=== PATIENT | female | born 1955 | race Caucasian/White ===

== ENCOUNTER 2018-09-30 10:41 | Day surgery (SDC) | payer OTHER ==
[2018-09-17 14:07] VITALS: BMI 22.5
[2018-09-30] MEDS ORDERED: LIDOCAINE HCL/PF 2% SDV 5ML VIAL ONE (11:02)
[2018-09-30] MEDS ORDERED: PROPOFOL 20 ML ONE (11:02)
[2018-09-30 16:50] VITALS: TEMP 97.6
[2018-09-30 18:03] VITALS: PULSE 72
[2018-09-30 18:05] VITALS: BP 106/60
== END 2018-09-30 14:00 | disposition home or self-care (01) ==
LOC: FASU-ENDO 10:41
PROVIDERS: ATTEND Internal Medicine Gastroenterology
PROC: 0DJD8ZZ Inspection of Lower Intestinal Tract, Via Natural or Artificial Opening Endoscopic (ICD-10-PCS; principal; 2018-09-30 12:29)
DX: D64.9 Anemia, unspecified (principal); K64.1 Second degree hemorrhoids